=== PATIENT | female | born 1970 | race Caucasian/White ===

== ENCOUNTER 2017-06-08 21:02 | Emergency (ER) | payer MEDICAID ==
--- NOTE | 2017-06-08 21:04 | EDM.PDOC ---
ED HPI GENERAL MEDICAL PROBLEM - General Chief Complaint: Respiratory Problem Stated Complaint: Trouble Breathing Time Seen by Provider: 06/08/17 21:03 Source of Information: Reports: Patient, Family, RN, RN Notes Reviewed History Limitations: Reports: No Limitations - History of Present Illness INITIAL COMMENTS - FREE TEXT/NARRATIVE: Patient presents to the ED at [facility] with concerns of worsening SOB related to untreated asthma. Patient states earlier this evening she was out cutting the grass when she felt her asthma flare up. Patient states she "used a friends inhaler" which seemed to help. Patient states he rarely needs to use her inhaler. She states she does not have her own inhalers as she left it when [place] this [place]. Patient states she rarely gets an asthma exacerbation. Patient smoked cigarettes on a daily basis. No cough. No dizziness. No headaches. No chest pain. Onset: Today Onset Date: 06/08/17 Onset Time: 20:30 - Related Data Allergies Allergy/AdvReac Type Severity Reaction Status Date / Time morphine Allergy Change Verified 06/08/17 21:11 Mental Status Penicillins Allergy Hives Verified 06/08/17 21:11 Sulfa (Sulfonamide Allergy Hives Verified 06/08/17 21:11 Antibiotics) Home Meds: Home Meds Albuterol [Ventolin HFA] 8 gm INH Q4H 06/08/17 [History] predniSONE [Deltasone] 20 mg PO BID #10 tablet 06/08/17 [Rx] ED ROS GENERAL - Review of Systems Review Of Systems: See Below Constitutional: Denies: Fever, Chills, Weakness Respiratory: Reports: Shortness of Breath, Wheezing. Denies: Cough, Sputum Cardiovascular: Denies: Chest Pain, Palpitations Skin: Reports: No Symptoms Neurological: Reports: No Symptoms. Denies: Dizziness, Headache, Numbness, Tingling ED EXAM, GENERAL - Physical Exam Exam: See Below Exam Limited By: No Limitations General Appearance: Alert, No Apparent Distress, Thin. No: Anxious Respiratory/Chest: No Respiratory Distress, No Accessory Muscle Use, Wheezing ( Right mid to lower lobes) Cardiovascular: Normal Peripheral Pulses, Regular Rate, Rhythm Neurological: Alert, Oriented Skin Exam: Warm, Dry, Intact, Normal Color, No Rash Course - Vital Signs Last Recorded V/S: Last Vital Signs Temp 35.3 C 06/08/17 21:02 Pulse 90 06/08/17 21:02 Resp 18 06/08/17 21:02 BP 110/73 06/08/17 21:02 Pulse Ox 98 06/08/17 21:02 - Orders/Labs/Meds Orders: Active Orders 24 hr Category Date Time Status RT Aerosol Therapy [RC] ASDIRECTED Care 06/08/17 21:27 Active Meds: Medications Discontinued Medications Generic Name Dose Route Start Last Admin Trade Name Noam PRN Reason Stop Dose Admin Albuterol/Ipratropium 3 ml 06/08/17 21:27 06/08/17 21:39 Duoneb 3.0-0.5 Mg/3 Ml NEB 06/08/17 21:28 3 ml ONETIME ONE Administration Methylprednisolone Sodium Succinate 125 mg 06/08/17 21:26 06/08/17 21:38 Solu-Medrol IM 06/08/17 21:27 125 mg ONETIME ONE Administration Departure - Departure Time of Disposition: 21:42 Disposition: Home, Self-Care 01 Condition: Good Clinical Impression: Acute asthma flare Qualifiers: Asthma severity: mild intermittent Qualified Code(s): J45.21 - Mild intermittent asthma with (acute) exacerbation - Discharge Information Prescriptions: predniSONE [Deltasone] 20 mg PO BID #10 tablet Instructions: Asthma, Adult, [id number], Shortness of Breath, [id number] Referrals: Shawanda Meng SKI LIFT MECHANIC [Primary Care Provider] - Forms: ED Department Discharge Additional Instructions: 1. Stay well hydrated and rest 2. Take medications for the full coarse, even if you are feeling better 3. Avoid any known triggers; avoid cigarette smoke or other environmental inhalation irritants 4. Make an appointment to see your Primary for a follow up on your asthma - Problem List Review Problem List Initiated/Reviewed/Updated: Yes - My Orders Last 24 Hours: My Active Orders 06/08/17 21:27 RT Aerosol Therapy [RC] ASDIRECTED - Assessment/Plan Last 24 Hours: My Active Orders 06/08/17 21:27 RT Aerosol Therapy [RC] ASDIRECTED
[2017-06-08 21:09] VITALS: BP 110/73
[2017-06-08] MEDS ORDERED: methylPREDNISolone Sodium Succinate 125 MG/2 ML SDV IM ONE (21:26)
[2017-06-08] MEDS ORDERED: Albuterol/Ipratropium 3.0-0.5 MG/3 ML Neb Soln NEB ONE (21:27)
== END 2017-06-08 21:51 | disposition home or self-care (01) ==
LOC: MERGE 21:02 → VM.ED 21:02
DX: J45.21 Mild intermittent asthma with (acute) exacerbation (principal); Z88.0 Allergy status to penicillin; Z88.5 Allergy status to narcotic agent; Z88.2 Allergy status to sulfonamides
CPT/HCPCS: 96372; 99284; J2930

== ENCOUNTER 2017-07-12 17:04 | Emergency (ER) | payer MEDICAID ==
[2017-07-12 17:13] VITALS: BP 109/63
[2017-07-12] MEDS ORDERED: Sodium Chloride 0.9% 10 ML Syringe FLUSH PRN (17:35)
[2017-07-12] MEDS ORDERED: Ondansetron 4 MG/2 ML SDV IVPUSH ONE (17:35)
[2017-07-12] MEDS ORDERED: Levalbuterol HCl 1.25 MG/0.5 ML Neb NEB ONE ×2 (17:36→18:20)
[2017-07-12] MEDS ORDERED: methylPREDNISolone Sodium Succinate 125 MG/2 ML SDV IVPUSH ONE (17:36)
[2017-07-12] MEDS ORDERED: Famotidine 20 MG/2 ML SDV IVPUSH ONE (17:36)
[2017-07-12] MEDS ORDERED: Sodium Chloride 0.9% 1,000 ML IV ONE (18:00)
--- NOTE | 2017-07-12 18:00 | EDM.PDOC ---
ED HPI GENERAL MEDICAL PROBLEM - General Chief Complaint: Respiratory Problem Stated Complaint: difficulty breathing Time Seen by Provider: 07/12/17 17:14 Source of Information: Reports: Patient, Family, RN, RN Notes Reviewed History Limitations: Reports: No Limitations - History of Present Illness INITIAL COMMENTS - FREE TEXT/NARRATIVE: Patient presents the emergency room complaining of shortness of breath, wheezing , fatigue. The patient was originally seen by me in this ER on June 08, 2017 at which time she was treated for asthma exacerbation. Patient states her SOB and wheezing really did not get any better since then. Onset: Gradual Duration: Getting Worse chest Pain Score (Numeric/FACES): 3 - Related Data Allergies Allergy/AdvReac Type Severity Reaction Status Date / Time morphine Allergy Change Verified 07/12/17 17:15 Mental Status Penicillins Allergy Hives Verified 07/12/17 17:15 Sulfa (Sulfonamide Allergy Hives Verified 07/12/17 17:15 Antibiotics) Home Meds: Home Meds Albuterol [Ventolin HFA] 8 gm INH Q4H PRN 06/08/17 [History] Azithromycin [Zithromax] 250 mg PO DAILY 5 Days #6 tablet 07/12/17 [Rx] Budesonide [Pulmicort Flexhaler] 2 puff IH BID 07/12/17 [History] Past Medical History Respiratory History: Reports: Asthma Gastrointestinal History: Reports: Hepatitis Social & Family History - Tobacco Use Smoking Status *Q: Current Every Day Smoker Years of Tobacco use: 32 Packs/Tins Daily: 0.5 ED ROS GENERAL - Review of Systems Review Of Systems: See Below Constitutional: Reports: Fever, Chills, Weakness HEENT: Reports: No Symptoms Respiratory: Reports: Shortness of Breath, Wheezing, Pleuritic Chest Pain, Cough , Sputum Cardiovascular: Denies: Chest Pain, Palpitations GI/Abdominal: Reports: Nausea. Denies: Abdominal Pain, Vomiting Skin: Reports: No Symptoms Neurological: Reports: No Symptoms ED EXAM, GENERAL - Physical Exam Exam: See Below Exam Limited By: No Limitations General Appearance: Alert, No Apparent Distress, Thin, Cachetic Neck: Supple Respiratory/Chest: Decreased Breath Sounds, Crackles, Rhonchi, Wheezing Cardiovascular: Normal Peripheral Pulses, Regular Rate, Rhythm Peripheral Pulses: 2+: Radial (L), Radial (R) GI/Abdominal: Normal Bowel Sounds, Soft, Non-Tender Neurological: Alert, Oriented Skin Exam: Warm, Dry, Intact, Normal Color, No Rash Course - Vital Signs Last Recorded V/S: Last Vital Signs Temp 35.4 C 07/12/17 17:10 Pulse 81 07/12/17 17:10 Resp 28 H 07/12/17 17:10 BP 109/63 07/12/17 17:10 Pulse Ox 98 07/12/17 17:10 - Orders/Labs/Meds Orders: Active Orders 24 hr Category Date Time Status RT Post Treatment Assessment [RC] Click to Edit Care 07/12/17 17:36 Active RT Post Treatment Assessment [RC] Click to Edit Care 07/12/17 18:20 Active RT Pre-Treatment Assessment [RC] Click to Edit Care 07/12/17 17:36 Active RT Pre-Treatment Assessment [RC] Click to Edit Care 07/12/17 18:20 Active Chest 2V [CR] Stat Exams 07/12/17 17:34 Taken Sodium Chloride 0.9% [Normal Saline] 1,000 ml Med 07/12/17 18:00 Active IV ONETIME Sodium Chloride 0.9% [Saline Flush] Med 07/12/17 17:35 Active 10 ml FLUSH ASDIRECTED PRN Peripheral IV Insertion Adult [OM.PC] Routine Oth 07/12/17 17:35 Ordered Medication Orders Sodium Chloride (Normal Saline) 1,000 mls @ 999 mls/hr IV ONETIME ONE Stop: 07/12/17 19:00 Last Admin: 07/12/17 18:00 Dose: 999 mls/hr Sodium Chloride (Saline Flush) 10 ml FLUSH ASDIRECTED PRN PRN Reason: Keep Vein Open Labs: Laboratory Tests 07/12/17 07/12/17 Range/Units 17:44 17:44 WBC 6.7 (4.0-10.0) x10^3/uL RBC 4.79 (4.00-5.50) x10^6/uL Hgb 13.9 (12.0-16.0) g/dL Hct 41.7 (33.0-47.0) % MCV 87.1 (78.0-93.0) fL MCH 29.0 (26.0-32.0) pg MCHC 33.3 (32.0-36.0) g/dL RDW Coeff of Dulce 13.8 (10.0-15.0) % Plt Count 266 (130-400) x10^3/uL Neut % (Auto) 53.6 (50.0-80.0) % Lymph % (Auto) 29.4 (25.0-50.0) % [place] % (Auto) 8.0 (2.0-11.0) % Eos % (Auto) 8.3 H (0.0-4.0) % Baso % (Auto) 0.7 (0.2-1.2) % Sodium 140 (136-145) mmol/L Potassium 4.7 (3.5-5.1) mmol/L Chloride 106 (98-107) mmol/L Carbon Dioxide 29 (21-32) mmol/L BUN 9 (7-18) mg/dL Creatinine 0.9 (0.55-1.02) mg/dL Est Cr Clr Drug Dosing 72.24 mL/min Estimated GFR (MDRD) > 60 Glucose 80 (74-106) mg/dL Calcium 8.4 L (8.5-10.1) mg/dL Meds: Medications Generic Name Dose Route Start Last Admin Trade Name Freq PRN Reason Stop Dose Admin Sodium Chloride 1,000 mls @ 999 mls/hr 07/12/17 18:00 07/12/17 18:00 Normal Saline IV 07/12/17 19:00 999 mls/hr ONETIME ONE Administration Sodium Chloride 10 ml 07/12/17 17:35 Saline Flush FLUSH ASDIRECTED PRN Keep Vein Open Discontinued Medications Generic Name Dose Route Start Last Admin Trade Name Freq PRN Reason Stop Dose Admin Famotidine 20 mg 07/12/17 17:36 07/12/17 18:05 Pepcid IVPUSH 07/12/17 17:37 20 mg ONETIME ONE Administration Levalbuterol HCl 1.25 mg 07/12/17 17:36 07/12/17 18:00 Xopenex NEB 07/12/17 17:37 1.25 mg ONETIME ONE Administration Levalbuterol HCl 1.25 mg 07/12/17 18:20 07/12/17 18:24 Xopenex NEB 07/12/17 18:21 1.25 mg ONETIME ONE Administration Methylprednisolone Sodium Succinate 125 mg 07/12/17 17:36 07/12/17 18:00 Solu-Medrol IVPUSH 07/12/17 17:37 125 mg ONETIME ONE Administration Ondansetron HCl 4 mg 07/12/17 17:35 07/12/17 18:02 Zofran IVPUSH 07/12/17 17:36 4 mg ONETIME ONE Administration - Radiology Interpretation Free Text/Narrative:: CXR: Question of Asthma - see scanned report in EMR Departure - Departure Time of Disposition: 19:00 Disposition: Home, Self-Care 01 Condition: Good Clinical Impression: COPD with exacerbation - Discharge Information Prescriptions: Azithromycin [Zithromax] 250 mg PO DAILY 5 Days #6 tablet Instructions: Chronic Obstructive Pulmonary Disease Exacerbation, [id number] Referrals: Shawanda Meng SOFTWARE VALIDATION ENGINEER [Primary Care Provider] - Forms: ED Department Discharge Additional Instructions: 1. Stay well hydrated and rest 2. Avoid cigarette smoke, this is making your symptoms worse 3. Take antibiotics for the full coarse, even if you are feeling better 4. Take steroids to make sure your breathing stay good 5. See your Primary for a refill of your inhalers 6. Follow handout on Pulmicort inhaler instructions - Problem List Review Problem List Initiated/Reviewed/Updated: Yes - My Orders Last 24 Hours: My Active Orders 07/12/17 17:34 Chest 2V [CR] Stat 07/12/17 17:35 Sodium Chloride 0.9% [Saline Flush] 10 ml FLUSH ASDIRECTED PRN Peripheral IV Insertion Adult [OM.PC] Routine 07/12/17 17:36 RT Post Treatment Assessment [RC] Click to Edit RT Pre-Treatment Assessment [RC] Click to Edit 07/12/17 18:00 Sodium Chloride 0.9% [Normal Saline] 1,000 ml IV ONETIME 07/12/17 18:20 RT Post Treatment Assessment [RC] Click to Edit RT Pre-Treatment Assessment [RC] Click to Edit - Assessment/Plan Last 24 Hours: My Active Orders 07/12/17 17:34 Chest 2V [CR] Stat 07/12/17 17:35 Sodium Chloride 0.9% [Saline Flush] 10 ml FLUSH ASDIRECTED PRN Peripheral IV Insertion Adult [OM.PC] Routine 07/12/17 17:36 RT Post Treatment Assessment [RC] Click to Edit RT Pre-Treatment Assessment [RC] Click to Edit 07/12/17 18:00 Sodium Chloride 0.9% [Normal Saline] 1,000 ml IV ONETIME 07/12/17 18:20 RT Post Treatment Assessment [RC] Click to Edit RT Pre-Treatment Assessment [RC] Click to Edit Assessment:: Patient states she feels much better after the 2 Xopenex inhalers and IV solumedrol. Patient wishes to be discharge home. Will place patient on a ZPak per guidelines. Recommend seeing her Primary tomorrow to get her inhalers refilled. Patient agrees with POC.
[2017-07-12 18:03] LABS: CHLORIDE,CL 106 mmol/L (98-107); SODIUM,NA 140 mmol/L (136-145)
== END 2017-07-12 19:20 | disposition home or self-care (01) ==
LOC: VM.ED 17:04
DX: J44.1 Chronic obstructive pulmonary disease with (acute) exacerbation (principal); F17.210 Nicotine dependence, cigarettes, uncomplicated; Z79.2 Long term (current) use of antibiotics; Z88.0 Allergy status to penicillin; Z88.2 Allergy status to sulfonamides; Z88.5 Allergy status to narcotic agent
CPT/HCPCS: 36415; 71020; 80048; 85025; 94640; 96361; 96374; 96375; 99285; J2405; J2930; J7030; S0028

== ENCOUNTER 2017-12-10 09:12 | Emergency (ER) | payer MEDICAID ==
[2017-12-10 09:25] VITALS: BP 117/66
[2017-12-10] MEDS ORDERED: Take Home: Albuterol 6.7 GM Inhaler, 1 Inhaler Pack INH ONE (09:27)
[2017-12-10] MEDS ORDERED: Take Home: Azithromycin 250 MG, 2 Tab Pack PO ONE (09:27)
[2017-12-10] MEDS ORDERED: Take Home: predniSONE 20 MG, 2 Tab Pack PO ONE (09:29)
--- NOTE | 2017-12-10 09:37 | EDM.PDOC ---
ED HPI GENERAL MEDICAL PROBLEM - General Chief Complaint: Respiratory Problem Stated Complaint: BREATHING DIFFICULTY Time Seen by Provider: 12/10/17 09:25 Source of Information: Reports: Patient History Limitations: Reports: No Limitations - History of Present Illness INITIAL COMMENTS - FREE TEXT/NARRATIVE: Patient comes in with a greater than one week history of coughing, shortness of breath of activity, and phlegm production. Patient denies any fever however states that she is unable to get a good night's rest because she is constantly coughing she'll cough to the point gaging and wanting to throw up. The sputum production is yellow. She does have history of smoking. Has had this in the past and was put on azithromycin. She does have an inhaler for exercise induced asthma symptoms. She has been using that the past 3-4 days to help reduce the bronchospasms. She also states her ribs hurt because of all the coughing. 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: Breathing Treatments (PRN inhaler ) - Related Data Allergies Allergy/AdvReac Type Severity Reaction Status Date / Time fentanyl Allergy Change Verified 12/10/17 09:23 Mental Status morphine Allergy Change Verified 12/10/17 09:22 Mental Status Penicillins Allergy Hives Verified 12/10/17 09:22 Sulfa (Sulfonamide Allergy Hives Verified 12/10/17 09:22 Antibiotics) Home Meds: Home Meds Albuterol [Ventolin HFA] 8 gm INH Q4H PRN 06/08/17 [History] Azithromycin [Zithromax] 250 mg PO DAILY 5 Days #6 tablet 07/12/17 [Rx] Budesonide [Pulmicort Flexhaler] 2 puff IH BID 07/12/17 [History] predniSONE [Deltasone] 20 mg PO BID #10 tablet 07/12/17 [Rx] Past Medical History Respiratory History: Reports: Asthma Gastrointestinal History: Reports: Hepatitis Social & Family History - Tobacco Use Smoking Status *Q: Current Every Day Smoker Years of Tobacco use: 32 Packs/Tins Daily: 0.5 ED ROS GENERAL - Review of Systems Review Of Systems: See Below Constitutional: Reports: No Symptoms HEENT: Reports: No Symptoms Respiratory: Reports: Wheezing, Cough, Sputum Cardiovascular: Reports: No Symptoms Endocrine: Reports: No Symptoms GI/Abdominal: Reports: No Symptoms Musculoskeletal: Reports: No Symptoms Skin: Reports: No Symptoms Neurological: Reports: No Symptoms ED EXAM, GENERAL - Physical Exam Exam: See Below Exam Limited By: No Limitations General Appearance: Alert, WD/WN, No Apparent Distress Ears: Normal External Exam, Normal Canal, Hearing Grossly Normal, Normal TMs Ear Exam: Bilateral Ear: Auricle Normal, Canal Normal, TM normal Nose: Normal Inspection, Normal Mucosa, No Blood Throat/Mouth: Normal Inspection, Normal Lips, Normal Teeth, Normal Gums, Normal Oropharynx, Normal Voice, No Airway Compromise Head: Atraumatic, Normocephalic Respiratory/Chest: Wheezing. No: Respiratory Distress, Decreased Breath Sounds , Crackles, Rales, Rhonchi, Stridor, Pleural Rub, Accessory Muscle Use, Retractions, Splinting, Prolonged Expiration Cardiovascular: Normal Peripheral Pulses, Regular Rate, Rhythm, No Edema, No Gallop GI/Abdominal: Normal Bowel Sounds, Soft, Non-Tender, No Distention, No Abnormal Bruit Extremities: Normal Inspection, Normal Range of Motion, Non-Tender Neurological: Alert, Oriented Psychiatric: Normal Affect, Normal Mood Skin Exam: Warm, Dry, Normal Color Course - Vital Signs Last Recorded V/S: Last Vital Signs Temp 36.0 C 12/10/17 09:24 Pulse 78 12/10/17 09:24 Resp 20 12/10/17 09:24 BP 117/66 12/10/17 09:24 Pulse Ox 96 12/10/17 09:24 - Orders/Labs/Meds Meds: Medications Discontinued Medications Generic Name Dose Route Start Last Admin Trade Name Noam PRN Reason Stop Dose Admin Albuterol 1 packet 12/10/17 09:27 Take Home: Albuterol 6.7 Gm, 1 Inh Pack INH 12/10/17 09:28 ONETIME ONE Azithromycin 1 packet 12/10/17 09:27 Take Home: Azithromycin 250 Mg, 2 Tab Pack PO 12/10/17 09:28 ONETIME ONE Prednisone 1 packet 12/10/17 09:29 Take Home: Prednisone 20 Mg, 2 Tab Pack PO 12/10/17 09:30 ONETIME ONE Departure - Departure Time of Disposition: 09:35 Disposition: Home, Self-Care 01 Condition: Good Clinical Impression: Acute bronchiolitis Qualifiers: Bronchiolitis organism: unspecified organism Qualified Code(s): J21.9 - Acute bronchiolitis, unspecified - Discharge Information Instructions: Acute Bronchitis, [id number] Additional Instructions: Get plenty of rest Take antibiotics as prescribed Take antibiotics and steroid with food to help reduce GI upset Follow-up primary PCP if not better within 1 week Smoking sensation is encouraged or reduce smoking while sick will help reduce the bronchial spasms Take inhaler every 4 hours as needed for severe bronchospasm shortness of breath. Sleep with your head elevated to help reduce bronchospasms
== END 2017-12-10 09:48 | disposition home or self-care (01) ==
LOC: VM.ED 09:12
DX: J21.9 Acute bronchiolitis, unspecified (principal); J45.909 Unspecified asthma, uncomplicated; F17.210 Nicotine dependence, cigarettes, uncomplicated; Z88.5 Allergy status to narcotic agent; Z88.0 Allergy status to penicillin; Z79.899 Other long term (current) drug therapy; Z88.2 Allergy status to sulfonamides
CPT/HCPCS: 99284; A9270

== ENCOUNTER 2018-01-04 17:06 | Emergency (ER) | payer MEDICAID ==
[2018-01-04 17:17] VITALS: BP 153/78
--- NOTE | 2018-01-05 18:21 | EDM.PDOC ---
ED HPI GENERAL MEDICAL PROBLEM - General Chief Complaint: Respiratory Problem Stated Complaint: asthma attack Time Seen by Provider: 01/04/18 17:06 Source of Information: Reports: Patient History Limitations: Reports: No Limitations - History of Present Illness INITIAL COMMENTS - FREE TEXT/NARRATIVE: Pt. states that she is out of her albuterol inhaler. Pt. has a longstanding history of poorly controlled asthma. States that she had some 'left over" prednisone from a prescription that she didn't finish from a pervious exacerbation which she takes intermittently when she feels she is having troubles breathing. She states that she has not had any fever or chills. Denies any significant cough. She states that she is a smoker. She has not been taking any inhaled corticosteroids or LABA. 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 Treatments - Related Data Allergies Allergy/AdvReac Type Severity Reaction Status Date / Time fentanyl Allergy Change Verified 01/04/18 17:35 Mental Status morphine Allergy Change Verified 01/04/18 17:35 Mental Status Penicillins Allergy Hives Verified 01/04/18 17:35 Sulfa (Sulfonamide Allergy Hives Verified 01/04/18 17:35 Antibiotics) Home Meds: Home Meds Albuterol [Ventolin HFA] 8 gm INH Q6H PRN 06/08/17 [History] Azithromycin [Zithromax] 250 mg PO DAILY 5 Days #6 tablet 07/12/17 [Rx] Budesonide [Pulmicort Flexhaler] 2 puff IH BID 07/12/17 [History] predniSONE [Deltasone] 20 mg PO DAILY 01/04/18 [History] Past Medical History Respiratory History: Reports: Asthma Gastrointestinal History: Reports: Hepatitis Social & Family History - Tobacco Use Smoking Status *Q: Current Every Day Smoker Years of Tobacco use: 20 Packs/Tins Daily: 0.5 ED ROS GENERAL - Review of Systems Review Of Systems: See Below Constitutional: Reports: No Symptoms HEENT: Reports: No Symptoms Respiratory: Reports: Shortness of Breath, Wheezing, Cough Cardiovascular: Reports: No Symptoms Endocrine: Reports: No Symptoms GI/Abdominal: Reports: No Symptoms : Reports: No Symptoms Musculoskeletal: Reports: No Symptoms Skin: Reports: No Symptoms Neurological: Reports: No Symptoms Psychiatric: Reports: No Symptoms Hematologic/Lymphatic: Reports: No Symptoms Immunologic: Reports: No Symptoms ED EXAM, GENERAL - Physical Exam Exam: See Below Exam Limited By: No Limitations General Appearance: Alert, WD/WN, No Apparent Distress Eye Exam: Bilateral Eye: Normal Fundi, Normal Inspection, PERRL Ears: Normal External Exam, Normal Canal, Hearing Grossly Normal, Normal TMs Ear Exam: Bilateral Ear: Auricle Normal, Canal Normal, TM normal Nose: Normal Inspection, Normal Mucosa, No Blood Throat/Mouth: Normal Inspection, Normal Lips, Normal Teeth, Normal Gums, Normal Oropharynx, Normal Voice, No Airway Compromise Head: Atraumatic, Normocephalic Neck: Normal Inspection, Supple, Non-Tender, Full Range of Motion Respiratory/Chest: Chest Non-Tender, Decreased Breath Sounds, Wheezing, Prolonged Expiration. No: Rhonchi, Pleural Rub, Accessory Muscle Use, Retractions Cardiovascular: Normal Peripheral Pulses, Regular Rate, Rhythm, No Edema, No Gallop, No JVD, No Murmur, No Rub Peripheral Pulses: 3+: Radial (L), Radial (R) GI/Abdominal: Normal Bowel Sounds, Soft, Non-Tender, No Organomegaly, No Distention, No Abnormal Bruit, No Mass (Female) Exam: Deferred Rectal (Female) Exam: Deferred Back Exam: Normal Inspection, Full Range of Motion, NT Extremities: Normal Inspection, Normal Range of Motion, Non-Tender, Normal Capillary Refill, No Pedal Edema Neurological: Alert, Oriented, CN II-XII Intact, Normal Cognition, Normal Gait, Normal Reflexes, No Motor/Sensory Deficits Psychiatric: Normal Affect, Normal Mood Skin Exam: Warm, Dry, Intact, Normal Color, No Rash Lymphatic: No Adenopathy Course - Vital Signs Last Recorded V/S: Last Vital Signs Temp 36.4 C 01/04/18 17:10 Pulse 79 01/04/18 17:10 Resp 18 01/04/18 17:10 BP 153/78 H 01/04/18 17:10 Pulse Ox 99 01/04/18 17:10 Departure - Departure Time of Disposition: 17:40 Disposition: Home, Self-Care 01 Clinical Impression: Exacerbation of asthma - Discharge Information Instructions: Asthma, Adult Referrals: Shawanda Meng FLOWER CUTTER [Primary Care Provider] - Forms: ED Department Discharge Additional Instructions: albuterol HFA 2 puffs every 4-6 hours Prednisone 40mg once daily Azithromycin 250mg 2 tablets x 1, then 1 tablet daily until gone. Follow-up in clinic with Shawanda in 10-14 days for recheck. Care Plan Goals: Scripts for prednisone and albuterol inhaler were called in to [place] [facility].
== END 2018-01-04 17:40 | disposition home or self-care (01) ==
LOC: VM.ED 17:06
DX: J45.901 Unspecified asthma with (acute) exacerbation (principal); F17.210 Nicotine dependence, cigarettes, uncomplicated; Z88.5 Allergy status to narcotic agent; Z88.8 Allergy status to other drugs, medicaments and biological substances; Z88.2 Allergy status to sulfonamides; Z88.0 Allergy status to penicillin; Z79.899 Other long term (current) drug therapy
CPT/HCPCS: 99284

== ENCOUNTER 2022-11-24 04:26 | Emergency (ER) | payer MEDICAID ==
[2022-11-24 04:35] VITALS: BP 135/71; PULSE 96
== END 2022-11-24 05:22 | disposition home or self-care (01) ==
LOC: VM.ED 04:26
DX: M54.50 Low back pain, unspecified (principal); G89.29 Other chronic pain; J44.9 Chronic obstructive pulmonary disease, unspecified; F17.210 Nicotine dependence, cigarettes, uncomplicated; Z88.0 Allergy status to penicillin; Z88.2 Allergy status to sulfonamides; Z88.5 Allergy status to narcotic agent; Z88.8 Allergy status to other drugs, medicaments and biological substances
CPT/HCPCS: 99283